=== PATIENT | male | born 1970 ===

== ENCOUNTER 2018-05-18 06:56 | Emergency (ER) | payer OTHER ==
[2018-05-18 06:57] VITALS: BMI 30.7
[2018-05-18 07:08] VITALS: BP 136/81; PULSE 70; RESP 20; TEMP 98.3; O2SAT 96
--- NOTE | 2018-05-18 07:23 | C.PDOC ---
History Of Present Illness 47 year old male presents to the emergency department with complaints of bilateral non traumatic heel pain for 10 days. Patient notes he had some back pain from midback to ls spine for a week. He denies any fall, trauma, similar pain in the past, leg weakness, numbness, or urinary/bowel incontinence. Patient works at a construction site lifting up garbage. He states he did not take any medications for the pain. Time Seen by Provider: 05/18/18 07:11 Chief Complaint (Nursing): Back Pain History Per: Patient History/Exam Limitations: no limitations Onset/Duration Of Symptoms: Days Current Symptoms Are (Timing): Still Present Past Medical History Reviewed: Historical Data, Nursing Documentation, Vital Signs Vital Signs: Last Vital Signs Temp 98.3 F 05/18/18 07:04 Pulse 70 05/18/18 07:04 Resp 20 05/18/18 07:04 BP 136/81 05/18/18 07:04 Pulse Ox 96 05/18/18 08:52 - Medical History PMH: Gastritis Denies: Chronic Kidney Disease Surgical History: Endoscopy Family History: States: No Known Family Hx - Social History Hx Alcohol Use: Yes Hx Substance Use: No - Immunization History Hx Tetanus Toxoid Vaccination: No Hx Influenza Vaccination: No Hx Pneumococcal Vaccination: No Review Of Systems Except As Marked, All Systems Reviewed And Found Negative. Constitutional: Negative for: Fever, Chills Cardiovascular: Negative for: Chest Pain Respiratory: Negative for: Shortness of Breath Genitourinary: Negative for: Incontinence (Urinary/bowel) Musculoskeletal: Positive for: Back Pain (midback to lower back), Foot Pain ( Bilateral heel pain) Neurological: Negative for: Weakness, Numbness Physical Exam - Physical Exam Appears: Well, Non-toxic, No Acute Distress Skin: Normal Color, Warm Head: Atraumatic, Normacephalic Eye(s): bilateral: Normal Inspection Oral Mucosa: Moist Neck: Supple Back: No Straight Leg Raising, Other (paraspinal spasm from lower thoracic to LS spine) Extremity: Tenderness (point tenderness at midheel bilaterally ), No Deformity, No Swelling Neurological/Psych: Oriented x3, Normal Speech ED Course And Treatment O2 Sat by Pulse Oximetry: 96 (RA) Pulse Ox Interpretation: Normal - Other Rad Heel X-Ray X-Ray: Read By Radiologist Interpretation: FINDINGS: No fracture or joint dislocation. No focal lesion. Small calcaneal spurs. IMPRESSION: Bilateral small plantar calcaneal spurs. No acute fracture or dislocation. Reassessment Condition: Improved Medical Decision Making Medical Decision Making: Impression: Heel Pain Plan: -Heel X-Ray -Flexeril 10 mg PO -Toradol 30 mg IM On re-evaluation, patient is resting comfortably and tolerating PO. He states pain is 99% better. X-ray shows heel spur. Disposition Counseled Patient/Family Regarding: Studies Performed, Diagnosis, Need For Followup, Rx Given - Disposition Referrals: Sung Amato MD [Medical Doctor] - Elver Zhou DPM [Doctor Podiatric Medicine] - Disposition: HOME/ ROUTINE Disposition Time: 07:48 Condition: GOOD Additional Instructions: FOLLOW UP WITH DR. AMATO IN 1-2 DAYS FOR RE-EVALUATION AND OFFICIAL XRAY REPORT. 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 TAKE IBUPROFEN 400 MG WITH PEPCID 10 MG TOGETHER EVERY 8 HOURS NEEDED FOR PAIN WITH FOOD. IF SYMPTOMS GET WORSE, URINARY /BOWEL INCONTINENCE OR LEG WEAKNESS OR NUMBNESS DEVELOP RETURN TO ED. Prescriptions: Cyclobenzaprine [Cyclobenzaprine HCl] 10 mg PO TID PRN #21 tab PRN Reason: Muscle Spasm Instructions: Low Back Pain in Adults, Heel Spurs (DC) Forms: [employer] (Indonesian), Gen Discharge Inst Portuguese Print Language: POLISH - Clinical Impression Clinical Impression: Strain, back, Heel spur - PA / ONCOLOGY PHYSICIAN ASSISTANT / Resident Statement MD/DO has reviewed & agrees with the documentation as recorded. - Scribe Statement The provider has reviewed the documentation as recorded by the Antoinetteibjoss Pires All medical record entries made by the Antoinetteibjoss were at my direction and personally dictated by me. I have reviewed the chart and agree that the record accurately reflects my personal performance of the history, physical exam, medical decision making, and the department course for this patient. I have also personally directed, reviewed, and agree with the discharge instructions and disposition.
--- NOTE | 2018-05-18 08:41 | RAD ---
Date of service: 05/18/2018 PROCEDURE: Radiographs of bilateral calcaneus/hindfoot. HISTORY: pain COMPARISON: None available. TECHNIQUE: Frontal and lateral radiographs of bilateral calcaneus. FINDINGS: No fracture or joint dislocation. No focal lesion. Small calcaneal spurs. IMPRESSION: Bilateral small plantar calcaneal spurs. No acute fracture or dislocation.
== END 2018-05-18 08:14 | disposition home or self-care (01) ==
LOC: C.ER 06:56
DX: M77.32 Calcaneal spur, left foot (principal); M77.31 Calcaneal spur, right foot; S39.012A Strain of muscle, fascia and tendon of lower back, initial encounter; X58.XXXA Exposure to other specified factors, initial encounter
CPT/HCPCS: 73650; 96372; 99285; J1885